=== PATIENT | male | born 1990 | race Caucasian/White ===

== ENCOUNTER 2019-04-27 16:46 | Emergency (ER) | payer OTHER ==
[2019-04-27 17:04] VITALS: BP 156/80
--- NOTE | 2019-04-27 17:30 | UC ---
Nausea/Vomiting/Diarrhea HPI - HPI Summary HPI Summary: 28 year old male presents with 5 day history of watery diarrhea. States he has been having multiple episodes of watery diarrhea daily. Worse after eating. Associated with abdominal cramping that is relieved after defecating. He is concerned it may be from something he ate although no denies consumption of raw or undercooked meat or seafood. No recent travel out of the country or antibiotic use. 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 Denies fever, chills, lightheadedness, dizziness, nausea, vomiting, blood in stool, or melena. - History of Current Complaint Chief Complaint: UCGI Stated Complaint: BAD BOWEL MOVEMENTS Time Seen by Provider: 04/27/19 16:50 Hx Obtained From: Patient Pain Intensity: 3 - Allergies/Home Medications Allergies/Adverse Reactions: Allergies Allergy/AdvReac Type Severity Reaction Status Date / Time No Known Allergies Allergy Verified 04/27/19 17:04 Home Medications: Home Medications NK [No Home Medications Reported] 04/27/19 [History Confirmed 04/27/19] PMH/Surg Hx/FS Hx/Imm Hx Previously Healthy: Yes - Denies sigificant PMH - Surgical History Surgical History: None - Family History Known Family History: Positive: Non-Contributory - Social History Occupation: Student Lives: Dormitory/Roommates Alcohol Use: Weekly Substance Use Type: None Smoking Status (MU): Never Smoked Tobacco Review of Systems All Other Systems Reviewed And Are Negative: Yes Constitutional: Negative: Fever, Chills Respiratory: Positive: Negative Cardiovascular: Positive: Negative Gastrointestinal: Positive: Abdominal Pain - cramping, Diarrhea. Negative: Vomiting, Nausea Genitourinary: Positive: Negative Musculoskeletal: Positive: Negative Neurological: Positive: Negative Is Patient Immunocompromised?: No Physical Exam - Summary Physical Exam Summary: GENERAL APPEARANCE: Well developed, well nourished, alert and cooperative, and appears to be in no acute distress. EYES: Conjunctiva clear. No drainage. EARS: External auditory canals and tympanic membranes clear, hearing grossly intact. NOSE: No nasal discharge. THROAT: Pharynx normal. No tonsilar inflammation, swelling, exudate, or lesions. Uvula midline. NECK: Neck supple, non-tender without lymphadenopathy. CARDIAC: Normal S1 and S2. No S3, S4 or murmurs. Rhythm is regular. There is no peripheral edema, cyanosis or pallor. Extremities are warm and well perfused. Capillary refill is less than 2 seconds. Peripheral pulses intact. LUNGS: Clear to auscultation without rales, rhonchi, wheezing or diminished breath sounds. ABDOMEN: Hyperactive bowel sounds. Soft, nondistended, nontender. No guarding or rebound. No masses or hepatosplenomegally. MUSKULOSKELETAL: ROM intact to all extremities. No joint erythema or tenderness. Normal muscular development. Normal gait. SKIN: Skin normal color, texture and turgor with no lesions or eruptions. Triage Information Reviewed: Yes Vital Signs: Initial Vital Signs Temp 98.3 F 04/27/19 16:50 Pulse 76 04/27/19 16:50 Resp 16 04/27/19 16:50 BP 156/80 04/27/19 16:50 Pulse Ox 99 04/27/19 16:50 Vital Signs Reviewed: Yes Naus/Vom/Diarrhea Course/Dx - Course Course Of Treatment: 28 year old male presents with 5 day history of watery diarrhea. States he has been having multiple episodes of watery diarrhea daily. Worse after eating. Associated with abdominal cramping that is relieved after defecating. He is concerned it may be from something he ate although no denies consumption of raw or undercooked meat or seafood. No recent travel out of the country or antibiotic use. 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 Denies fever, chills, lightheadedness, dizziness, nausea, vomiting, blood in stool, or melena. Afebrile. Hypertensive otherwise vital signs stable. Patient had hyperactive bowel sounds with a soft, nondistended, nontender abdomen and otherwise unremarkable exam. He was unable to provide an adequate stool sample in the clinic therefore he was discharged home with stool kit for stool culture as well as ova and parasite testing. Recommending conservative treatment for acute diarrhea. He is to return here or follow up at the [facility] in 3 days if symptoms do not improve. Anticipatory guidance and warning symptoms were reviewed with the patient. Verbalizes understanding and agrees with plan of care. - Differential Dx/Diagnosis Differential Diagnoses - Male: Enterocolitis, Ulcerative Colitis/Crohn's Disease , Gastroenteritis (Viral), Gastroenteritis (Bacterial) Provider Diagnosis: Acute diarrhea Condition At Discharge: Stable Discharge ED - Sign-Out/Discharge Documenting (check all that apply): Patient Departure All imaging exams completed and their final reports reviewed: No Studies - Discharge Plan Condition: Stable Disposition: HOME Patient Education Materials: Acute Diarrhea (ED) Referrals: No Primary Care Phys,NOPCP [Primary Care Provider] - Additional Instructions: Acute diarrhea typically resolves on its own without treatment. The most important consideration with diarrhea is avoiding dehydration. We will send you home with a kit to collect a stool specimen so we can do testing for the most common causes of infectious diarrhea. You may use an over the counter anti-diarrhea medication such as Imodium according to directions. Be sure to drink plenty of fluids. Avoid beverages containing caffeine or artificial sweeteners as these can worsen symptoms. Be sure to eat a well balanced diet. Boiled starches and cereals (potatoes, rice , cream of wheat, oatmeal) as well as food such as crackers, toast, bananas, soups and boiled vegetables are usually recommended if you are having watery diarrhea. Be sure to use good hand hygiene to prevent spreading any infection. Use an over the counter pain medication such as acetaminophen (Tylenol) or ibuprofen (Advil, Motrin) according to directions as needed for aches and pains. Return here or follow up with the [facility] in 3-5 days if symptoms persist. Seek immediate medical attention in the emergency room if you have fever greater than 100.5 F, have severe abdominal pain, persistent vomiting, blood in your vomit or stool, you become weak or dizzy, or have any worsening of symptoms. - Billing Disposition and Condition Condition: STABLE Disposition: Home - Attestation Statements Provider Attestation: I was available for consult. This patient was seen by the ANGELIQUE. The patient was not presented to, seen by, or examined by me. -Jennifer
== END 2019-04-27 17:50 | disposition home or self-care (01) ==
LOC: UCEAST 16:46
DX: R19.7 Diarrhea, unspecified (principal); R10.9 Unspecified abdominal pain
CPT/HCPCS: 87045; 87046; 87328; 87329; 87899; 99201; G0463